=== PATIENT | female | born 1990 | race Hispanic/Latino ===

== ENCOUNTER 2018-11-09 11:41 | Inpatient (IN) | payer OTHER, SELFPAY ==
[2018-11-11] MEDS ORDERED: Bupivacaine 0.25% HCL 30 ML VIAL ONE (09:00)
[2018-11-11] MEDS ORDERED: Lidocaine 2% MPF 10 ML AMP (For Epidural Use) ONE (09:00)
[2018-11-11] MEDS ORDERED: Meperidine HCl/PF 25 MG/ML VIAL IM/IV PRN (16:23)
[2018-11-11] MEDS ORDERED: HYDROcodone/Acetaminophen 5/325 mg Tablet PO PRN ×2 (16:23)
[2018-11-11] MEDS ORDERED: Zolpidem Tartrate 5 MG TAB PO PRN (16:23)
[2018-11-11] MEDS ORDERED: NS w/ Oxytocin 10 units 500 ML IV SCH (16:23)
[2018-11-11] MEDS ORDERED: Butorphanol Tartrate 1 MG/ML VIAL SLOW IVP PRN (16:23)
[2018-11-11] MEDS ORDERED: NS / Oxytocin 40 units/1000ml 1,000 ML IV PRN (16:23)
[2018-11-11] MEDS ORDERED: Docusate 100 MG CAP PO PRN (16:23)
[2018-11-11] MEDS ORDERED: Diphenoxylate HCl/Atropine Tablet PO PRN ×2 (16:23)
[2018-11-11] MEDS ORDERED: Acetaminophen 500 MG TAB PO PRN (16:23)
[2018-11-11] MEDS ORDERED: Misoprostol 200 MCG TAB PR PRN (16:23)
[2018-11-11] MEDS ORDERED: Ondansetron PF 4 MG/2 ML Vial IVP PRN ×2 (16:23→22:32)
[2018-11-11] MEDS ORDERED: Promethazine HCl 25 MG/ML VIAL IM PRN ×2 (16:23→22:32)
[2018-11-11] MEDS ORDERED: Lidocaine 1% (PF) 30 ML VIAL SC PRN (16:23)
[2018-11-11] MEDS ORDERED: Ibuprofen 800 MG TAB PO PRN (16:23)
[2018-11-11] MEDS: Lactated Ringer's 1,000 ML IV SCH ×2 (16:40→22:02)
[2018-11-11 16:57] LABS: Hemoglobin 12.7 g/dL (12.0-16.0); Mean Corpuscular HGB CONC 34.8 g/dL (32.0-36.0); Mean Corpuscular Hemoglobin 31.5 pg (27.0-31.0); Mean Corpuscular Volume 90.4 fL (78.0-98.0); Mean Platelet Volume 7.5 fL (7.4-10.4); Platelet Count 249 thou/uL (130-400); RBC Distribution Width 12.6 % (11.5-14.5); Red Blood Cell (RBC) Count 4.03 mill/uL (4.20-5.40); White Blood Cell (WBC) Count 8.9 thou/uL (4.8-10.8)
[2018-11-11 17:15] VITALS: BMI 26.6
[2018-11-11] MEDS: Misoprostol 100 MCG TAB VAG SCH ×2 (17:35→23:03)
[2018-11-11 17:42] LABS: Hep B Surf Ag Non-Reactive S/CO (NonReactive); Syphilis Antibody Nonreactive (Nonreactive); Syphilis Antibody Index 0.05 S/CO (<1.00 Non-Reactive)
[2018-11-11] MEDS ORDERED: Fentanyl 4 mcg/Bup 0.1% Cadd 100 ML ONE (21:43)
[2018-11-11] MEDS ORDERED: Fentanyl 100 MCG/2 ML VIAL ONE (21:53)
[2018-11-11] MEDS ORDERED: Bupivacaine 0.5% 10 ML VIAL ONE (21:53)
[2018-11-11] MEDS ORDERED: Lactated Ringer's 500 ML IV PRN (22:32)
[2018-11-11] MEDS ORDERED: diphenhydrAMINE 50 MG/ML VIAL IVP PRN (22:32)
[2018-11-11] MEDS ORDERED: Acetaminophen 325 MG TAB PO PRN (22:32)
[2018-11-11] MEDS ORDERED: ePHEDrine/0.9% NaCl/PF SYRINGE 50 mg/10 ml SLOW IVP PRN (22:32)
[2018-11-11] MEDS ORDERED: Naloxone HCl 0.4 mg/ml Vial IVP PRN ×2 (22:32)
[2018-11-11] MEDS ORDERED: Eucerin (Mineral Oil/Petrolatum,White) 30 gm Jar TOP PRN (22:32)
[2018-11-11] MEDS ORDERED: Communication Order-Pharmacy FS SCH (22:45)
[2018-11-11] MEDS: Fentanyl 4 mcg/Bupivacaine 0.1% Cassette 100 ML EPIDURAL SCH (23:02)
[2018-11-12] MEDS: Lactated Ringer's 1,000 ML IV SCH ×3 (00:21→16:31)
[2018-11-12] MEDS: Misoprostol 100 MCG TAB VAG SCH ×4 (04:17→22:10)
[2018-11-12] MEDS ORDERED: Fentanyl 4 mcg/Bup 0.1% Cadd 100 ML ONE ×3 (05:42→17:16)
[2018-11-12] MEDS: Fentanyl 4 mcg/Bupivacaine 0.1% Cassette 100 ML EPIDURAL SCH (05:47)
[2018-11-12] MEDS: NS w/ Oxytocin 10 units 500 ML IV SCH ×2 (22:09→22:10)
[2018-11-12] MEDS ORDERED: Bisacodyl 10 MG SUPP PR PRN (22:33)
[2018-11-12] MEDS ORDERED: Milk Of Magnesia 30 ML UDCUP PO PRN (22:33)
[2018-11-12] MEDS ORDERED: Lanolin Ointment 7 GM TUBE TOP PRN (22:38)
[2018-11-12] MEDS ORDERED: Benzocaine-Menthol 82.5 ML CAN TOP PRN (22:38)
[2018-11-12] MEDS ORDERED: Acetaminophen/Codeine 30-300mg Tablet PO PRN ×2 (22:38)
[2018-11-12] MEDS ORDERED: Preparation H Ointment 28 GM TUBE PR PRN (22:38)
[2018-11-12] MEDS ORDERED: diphenhydrAMINE 25 MG CAP PO PRN (22:38)
[2018-11-12] MEDS ORDERED: NS / Oxytocin 40 units/1000ml 1,000 ML IV SCH (22:45)
[2018-11-13] MEDS: Misoprostol 100 MCG TAB VAG SCH ×6 (02:09→20:11)
[2018-11-13] MEDS: Ibuprofen 800 MG TAB PO SCH ×3 (05:14→23:04)
[2018-11-13] MEDS ORDERED: Adacel (T-DAP) 0.5 ML SYRINGE IM ONE (09:00)
[2018-11-13] MEDS: Ferrous Sulfate 325 MG TAB PO SCH ×2 (09:29→17:41)
[2018-11-13] MEDS: Lactated Ringer's 1,000 ML IV SCH ×2 (09:29→17:40)
[2018-11-13] MEDS: Prenatal Vitamin 1 TAB PO SCH (09:30)
[2018-11-13] MEDS: Docusate Calcium (SURFAK) 240 MG CAP PO SCH ×2 (09:30→23:04)
[2018-11-13] MEDS: NS w/ Oxytocin 10 units 500 ML IV SCH (17:41)
[2018-11-14] MEDS: Ibuprofen 800 MG TAB PO SCH ×2 (05:36→13:53)
[2018-11-14 08:14] VITALS: BP 106/66; TEMP 97.6
[2018-11-14] MEDS: Misoprostol 100 MCG TAB VAG SCH ×2 (09:06→09:07)
[2018-11-14] MEDS: Lactated Ringer's 1,000 ML IV SCH (09:07)
[2018-11-14] MEDS: Prenatal Vitamin 1 TAB PO SCH (09:08)
[2018-11-14] MEDS: Ferrous Sulfate 325 MG TAB PO SCH (09:08)
[2018-11-14] MEDS: Docusate Calcium (SURFAK) 240 MG CAP PO SCH (09:08)
== END 2018-11-14 16:30 | disposition home or self-care (01) | DRG 807 ==
LOC: EDSTATUS 17:10 → EEVIPCON 11-11 15:45 → L&D 11-11 15:45 → 3SW 11-12 22:47
PROVIDERS: ADMIT Obstetrics & Gynecology; ATTEND Obstetrics & Gynecology
PROC: 10D07Z6 Extraction of Products of Conception, Vacuum, Via Natural or Artificial Opening (ICD-10-PCS; principal; 2018-11-11)
DX: O48.0 Post-term pregnancy (principal); Z37.0 Single live birth; Z3A.40 40 weeks gestation of pregnancy; O76 Abnormality in fetal heart rate and rhythm complicating labor and delivery
CPT/HCPCS: 36415; 51702; 85027; 86780; 86850; 86900; 86901; 87340; J1200; J2001; J2405; J2550; J3010; J3490; S0020